=== PATIENT | female | born 2005 | race Caucasian/White ===

== ENCOUNTER 2025-01-29 13:01 | Emergency (ER) | payer BC, SELFPAY ==
[2025-01-29 13:07] VITALS: BP 119/81
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
[2025-01-29 13:37] LABS: HCG, Urine Qualitative Screen Negative
[2025-01-29 14:35] VITALS: BMI 23.9
== END 2025-01-29 16:31 | disposition home or self-care (01) ==
LOC: EMR 13:01
PROVIDERS: Student in an Organized Health Care Education/Training Program; EMERGENCY PHYSICIAN Emergency Medicine; FAMILY PHYSICIAN Family Medicine
DX: S09.90XA Unspecified injury of head, initial encounter (principal); V17.0XXA Pedal cycle driver injured in collision with fixed or stationary object in nontraffic accident, initial encounter
CPT/HCPCS: 99285; 70450; 72125; 81025